=== PATIENT | female | born 1990 | race Caucasian/White ===

== ENCOUNTER 2016-04-07 05:34 | Day surgery (SDC) | payer MEDICAID ==
[~2016-04-07] VITALS: Ht 170.2 cm; Wt 82.1 kg
[~2016-04-07 05:34] MED LIST: VESTURA 3 MG-01 EACH PO
[2016-04-07 07:14] LABS: HEMATOCRIT 42.4 % (36.0-48.0); HEMOGLOBIN 14.2 g/dL (12-16); MCHC 33.5 g/dL (31.0-37.0); MCV 89.5 fL (80.0-100.0); MEAN PLATELET VOLUME 12.4 fL (7.4-10.4); RBC 4.74 10x6/uL (4.00-5.40); RDW 12.1 % (11.5-14.5); WBC 8.8 10x3/uL (4.8-10.8)
[2016-04-07 07:43] VITALS: BP 112/60; Ht 170.2 cm; Wt 82.1 kg
[2016-04-07 07:47] LABS: HCG URINE NEGATIVE (NEGATIVE)
--- NOTE | 2016-04-07 11:52 | NUR ---
1100-IV DISCONTINUED, CATHETER INTACT, COTTON BALL AND BANDAID APPLIED. DISCHARGE INSTRUCTIONS GIVEN, PT. ESCORTED VIA WHEELCHAIR TO PERSONAL CAR, LEFT WITH DRIVING.
--- NOTE | 2016-04-11 09:51 | HP ---
PATIENT: EZEQUIEL PEREIRA MEDICAL RECORD: [id number] ACCOUNT: [id number] LOCATION:[facility] : 88 ADMISSION DATE: 04/07/16 HISTORY AND PHYSICAL EXAMINATION HISTORY OF PRESENT ILLNESS: Ezequiel has been having chronic tonsil problems with recurrent pharyngitis for years. She is being admitted for tonsillectomy. PAST MEDICAL HISTORY: Includes reactive airway disease. PAST SURGICAL HISTORY: Includes wisdom teeth removal. CURRENT MEDICATIONS: Vestura. ALLERGIES: No known drug allergies. PHYSICAL EXAMINATION: GENERAL: She is a healthy-appearing good historian, normal voice. FACE: Normal, symmetric, no lesions. EYES: Sclerae and conjunctivae are normal. EARS: Canals and TMs are normal. NOSE: No masses, polyps, or drainage. ORAL CAVITY AND OROPHARYNX: A 3+ cryptic tonsils. NECK: No masses, no adenopathy. CHEST: Clear. CARDIOVASCULAR: Regular rate and rhythm, no murmur. EXTREMITIES: Normal. IMPRESSION: Chronic tonsillitis. PLAN: Tonsillectomy. TRANSINT:[id number] Voice Confirmation ID: [id number] DOCUMENT ID: [id number] PHIL MEEKS MD at 0951 CC: [id number] DICTATION DATE: 04/03/16 1121 BEAUTY CONSULTANT: 04/03/16 1348 [facility] 04/07/[address] [address]
--- NOTE | 2016-04-11 09:51 | OP ---
PATIENT NAME: EZEQUIEL PEREIRA MEDICAL RECORD: [id number] :88 [facility]ATION[facility] ADMISSION DATE: SURGEON: PHIL BRUNSON MD DATE OF OPERATION: 04/07/2016 PREOPERATIVE DIAGNOSIS: Chronic tonsillitis. POSTOPERATIVE DIAGNOSIS: Chronic tonsillitis. PROCEDURE: Tonsillectomy. SURGEON: Phil Brunson MD ANESTHESIA: General orotracheal. BLOOD LOSS: Less than 10 cc. SPECIMENS: Right and left tonsil. COMPLICATIONS: None. DISPOSITION: Recovery stable. FINDINGS: Right side, she had what appeared to be an infected mucus retention cyst inferiorly, about a 1 cm with pus and a right superior peritonsillar abscess, and then the left side was full of microabscesses and inflamed granular tissue. DESCRIPTION OF PROCEDURE: She was brought to the operating room and placed in supine position, sedated and intubated by anesthesia. The eyes were taped. The table was turned 90 degrees. A head drape was applied and she was positioned for tonsillectomy. Using a headlight, a Jose-Uzair mouth gag was carefully inserted and elevated on a towel on her chest. The palate was examined and palpated, it was normal. The palate was retracted. A mirror was used to examine the nasopharynx. There was no significant adenoid tissue. The choanae and eustachian tube orifices were normal bilaterally. The right tonsil was grasped at the superior pole with a straight Allis clamp. Spatula tip cautery on a setting of 9 was used to dissect out the tonsil where the abscess inferiorly and superiorly and a lot of inflamed soft white and almost necrotic tonsillar tissue throughout. It was removed and then the left tonsil was removed in the same fashion and had more microabscesses and again, higgins soft tissue within the tonsil. After both tonsils were removed, the nose was irrigated with saline. The pharynx was irrigated. The tonsillar fossae were agitated with Yankauer suction. Suction cautery on a setting of 20 was used to control any bleeding. With the field clean and dry, the Jose-Uzair mouth gag was let down and removed. She was awakened, extubated, and transported to recovery in good condition. No complications. TRANSINT:[id number] Voice Confirmation ID: [id number] DOCUMENT ID: [id number] OPERATIVE REPORT [id number] EZEQUIEL PEREIRA ERIC MD at 0951 CC: [id number] DICTATION DATE: 04/07/1637 LEAD INJECTION MOLD TECHNICIAN: 04/07/16 1012 [facility] 04/07/16 [place] [id number] [place] [id number]
== END 2016-04-07 11:00 | disposition home or self-care (01) ==
LOC: D.OPS 05:34 → D.PAN 07:30 → D.OPS 07:30 → D.PAN 08:00 → D.OPS 11:00
PROVIDERS: Anesthesiology; Otolaryngology
DX: J35.01 Chronic tonsillitis (principal); J45.909 Unspecified asthma, uncomplicated